=== PATIENT | female | born 1955 | race African-American/Black ===

== ENCOUNTER 2017-01-25 18:33 | Emergency (ER) | payer MEDICAID, OTHER ==
[2017-01-25 18:58] LABS: #Basophils 0.1 thou/uL (0.0-0.2); #Eosinphils 0.1 thou/uL (0.0-0.7); #Lymphocytes 2.8 thou/uL (1.20-3.40); #Monocytes 0.4 thou/uL (0.11-0.59); #Neutrophils 2.6 thou/uL (1.40-6.50); %Basophils 1.3 % (0.0-1.0); %Eosinophils 2.1 % (0.0-10.0); %Neutrophils 43.6 % (42.0-75.0); Hemoglobin 15.1 g/dL (12.0-16.0); Mean Corpuscular Hemoglobin 32.9 pg (27.0-31.0); Mean Corpuscular Volume 99.7 fl (81.0-99.0); Mean Platelet Volume 6.6 fL (7.4-10.4); Platelet Count 239 thou/uL (130-400); RBC Distribution Width 11.9 % (11.5-14.5); Red Blood Cell (RBC) Count 4.58 mill/uL (4.20-5.40); White Blood Cell (WBC) Count 5.9 thou/uL (4.8-10.8)
[2017-01-25 19:15] LABS: ALT (SGPT) 14 U/L (0-55); AST (SGOT) 18 U/L (5-34); Albumin 4.2 g/dL (3.4-4.8); Alkaline Phosphatase 115 U/L (40-150); Anion Gap 15 mmol/L (10-20); BUN (Urea Nitrogen) 7 mg/dL (9.8-20.1); Bilirubin, Total 0.6 mg/dL (0.2-1.2); Calc. Creatinine Clearance 0 mL/min (70-130); Calcium 9.8 mg/dL (7.8-10.44); Carbon Dioxide 27 mmol/L (23-31); Chloride 99 mmol/L (98-107); Estimated GFR-MDRD 89; Globulin 3.3 g/dL (2.4-3.5); Glucose 101 mg/dL (80-115); Lipase 13 U/L (8-78); Protein, Total 7.5 g/dL (5.8-8.1); Sodium 138 mmol/L (136-145)
[2017-01-25 19:16] LABS: CKMB 1.1 ng/mL (0-6.6); Troponin I Less than 0.010 ng/mL (< 0.028)
[2017-01-25] MEDS ORDERED: Famotidine In NaCl 20 mg/50 ml Premix Bag ONE (19:22)
[2017-01-25] MEDS ORDERED: Famotidine 20 MG TAB ONE (19:22)
--- NOTE | 2017-01-25 20:46 | RAD ---
PORTABLE CHEST: Date: 01/25/17 An AP portable film at 1848 hours is compared with the 11/17/16 study. FINDINGS: The heart is normal in size for age, habitus, and AP projection. There is no vascular congestion or edema. No effusions are seen. No lobar pulmonary infiltrates are present. The lungs are mildly hyper expanded. The trachea is midline. There is probably some faint calcification in the aortic arch. Osmin e minimal haziness in the right cardiophrenic angle is probably just a fat pad or scarring. IMPRESSION: Hyperexpanded lungs with no acute findings. POS: HOME
== END 2017-01-25 20:32 | disposition home or self-care (01) ==
LOC: BURERS 18:33
DX: J44.9 Chronic obstructive pulmonary disease, unspecified (principal); I11.0 Hypertensive heart disease with heart failure; I50.9 Heart failure, unspecified; I25.2 Old myocardial infarction; F17.210 Nicotine dependence, cigarettes, uncomplicated
CPT/HCPCS: 36415; 71010; 80053; 82553; 83690; 84484; 85025; 93005; 94640; 94760; 96365; 96375; J7620

== ENCOUNTER 2017-06-10 18:17 | Emergency (ER) | payer OTHER ==
[~2017-06-10 18:17] MED LIST: Iopamidol 300 61% 100 ML VIAL FS ONE
[2017-06-10] MEDS ORDERED: methylPREDNISolone Sod Succ/PF 125 MG/2 ML VIAL ONE (19:01)
[2017-06-10 19:33] LABS: #Basophils 0.1 thou/uL (0.0-0.2); #Eosinphils 0.2 thou/uL (0.0-0.7); #Lymphocytes 2.5 thou/uL (1.20-3.40); #Monocytes 0.4 thou/uL (0.11-0.59); #Neutrophils 3.3 thou/uL (1.40-6.50); %Basophils 0.9 % (0.0-1.0); %Eosinophils 3.7 % (0.0-10.0); %Lymphocytes 39.4 % (21.0-51.0); %Monocytes 5.4 % (0.0-10.0); %Neutrophils 50.7 % (42.0-75.0); Hemoglobin 13.7 g/dL (12.0-16.0); Mean Corpuscular HGB CONC 32.5 g/dL (32.0-36.0); Mean Corpuscular Hemoglobin 33.7 pg (27.0-31.0); Mean Platelet Volume 7.1 fL (7.4-10.4); Platelet Count 194 thou/uL (130-400); RBC Distribution Width 11.4 % (11.5-14.5); Red Blood Cell (RBC) Count 4.07 mill/uL (4.20-5.40); White Blood Cell (WBC) Count 6.5 thou/uL (4.8-10.8)
[2017-06-10 19:43] LABS: INR-International Normal Ratio 1.1; PTT 23.2 SEC (22.9-36.1); Prothrombin Time 13.8 SEC (12.0-14.7)
[2017-06-10 19:44] LABS: D-Dimer Test 0.65 *mcg/mL (0.27-0.43)
[2017-06-10 19:50] LABS: ALT (SGPT) 13 U/L (8-55); AST (SGOT) 13 U/L (5-34); Albumin 3.9 g/dL (3.4-4.8); Alkaline Phosphatase 128 U/L (40-150); Anion Gap 16 mmol/L (10-20); BUN (Urea Nitrogen) 5 mg/dL (9.8-20.1); Bilirubin, Total 0.5 mg/dL (0.2-1.2); Calc. Creatinine Clearance 0 mL/min (70-130); Calcium 9.7 mg/dL (7.8-10.44); Carbon Dioxide 26 mmol/L (23-31); Chloride 105 mmol/L (98-107); Estimated GFR-MDRD Greater than 90; Globulin 2.9 g/dL (2.4-3.5); Glucose 90 mg/dL (80-115); Potassium 3.5 mmol/L (3.5-5.1); Protein, Total 6.8 g/dL (6.0-8.3); Sodium 143 mmol/L (136-145)
[2017-06-10 19:55] LABS: Troponin I 0.017 ng/mL (< 0.028)
--- NOTE | 2017-06-10 21:15 | RAD ---
CHEST TWO VIEWS: 06/10/17 Comparison is made with a 01/25/17 study. COPD is noted as before. The heart is normal in size and the lungs are clear. There are no congest franklin changes, effusions, or infiltrates. The heart is unchanged in size. Arteriosclerotic change is s een in the aorta. IMPRESSION: No acute findings. POS: HOME
[2017-06-10] MEDS ORDERED: Doxycycline Hyclate 100 MG TAB ONE (22:12)
--- NOTE | 2017-06-10 22:16 | CT ---
CT ANGIO OF THE CHEST: 06/10/17 Comparison is made with the prior study dated 12/04/15. Axial slices were acquired after a bolus of IV contrast. Oblique coronal reformations through the pu lmonary arteries was done subsequently. There is good opacification of the pulmonary arteries. There were no filling defects to suggest embo li. There is no sign of aortic dissection or aneurysm. The ascending aorta is slightly prominent in size measuring 3.6 cm across. The pulmonary arteries are generous in size with the right pulmonary a rtery measuring about 2.2 cm wide. Arteriosclerotic calcification is seen in the aorta and the coron yamilet arteries. The heart is enlarged but there is no pericardial fluid. The lungs show emphysematous changes throughout. No lobar consolidations were seen. there is a small patchy ground glass opacity in the right lower lobe posteriorly near the diaphragm. Looking back at the 2016 CT angio, I can faintly see something here, though perhaps not quite as prominent. This co uld be an area of scarring, though other pathology, even neoplasia, is theoretically possible. The a desirae should at least be watched, if not referred to a admission specialist to decide if anything should be d one sooner or later. Otherwise, the lungs showed no acute change. The lowest slices in this study sh owed several cystic areas scattered throughout the liver. The largest is about 3.4 cm in size and is no different than the [address] CT. IMPRESSION: 1. No evidence of pulmonary embolism. 2. Coronary arteriosclerosis. 3. Small patchy ground glass density in the right lower lobe, probably present in 2016 but a li ttle more prominent today. While it is still more likely benign than not, it might be prudent to shana ch it and potentially refer her to a admission specialist for followup given her emphysema. DISCUSSED NEED FOR F/U WITH DR SHEPARD @ [id number] ON 06/10. POS: HOME
== END 2017-06-10 22:40 | disposition home or self-care (01) ==
LOC: BURERS 18:17
DX: J44.1 Chronic obstructive pulmonary disease with (acute) exacerbation (principal); I11.0 Hypertensive heart disease with heart failure; I50.9 Heart failure, unspecified; I25.9 Chronic ischemic heart disease, unspecified; F17.210 Nicotine dependence, cigarettes, uncomplicated; Z79.82 Long term (current) use of aspirin; Z79.899 Other long term (current) drug therapy
CPT/HCPCS: 71020; 71275; 80053; 82553; 83605; 83880; 84484; 85025; 85379; 85610; 85730; 87040; 94760; 96374; A4216; J2930; J7620

== ENCOUNTER 2018-07-16 16:16 | Emergency (ER) | payer OTHER ==
[2018-07-16] MEDS ORDERED: Famotidine In NaCl 20 mg/50 ml Premix Bag ONE (16:39)
[2018-07-16] MEDS ORDERED: Mag-Al Plus 1200 MG/1200 MG/120 MG/30 ML UDCUP ONE (16:39)
[2018-07-16] MEDS ORDERED: Lidocaine Viscous Sol 2% 15 ml UD Cup ONE (16:39)
[2018-07-16] MEDS ORDERED: Pantoprazole 40 MG VIAL ONE (16:39)
[2018-07-16 16:58] LABS: #Eosinphils 0.1 thou/uL (0.0-0.7); #Lymphocytes 1.6 thou/uL (1.20-3.40); #Monocytes 0.2 thou/uL (0.11-0.59); %Basophils 0.9 % (0.0-1.0); %Eosinophils 1.6 % (0.0-10.0); %Lymphocytes 32.8 % (21.0-51.0); %Monocytes 4.5 % (0.0-10.0); %Neutrophils 60.1 % (42.0-75.0); Hemoglobin 15.2 g/dL (12.0-16.0); Mean Corpuscular HGB CONC 34.6 g/dL (32.0-36.0); Mean Corpuscular Hemoglobin 33.7 pg (27.0-31.0); Mean Corpuscular Volume 97.3 fL (78.0-98.0); Mean Platelet Volume 7.6 fL (7.4-10.4); Platelet Count 184 thou/uL (130-400); RBC Distribution Width 11.5 % (11.5-14.5); Red Blood Cell (RBC) Count 4.51 mill/uL (4.20-5.40)
[2018-07-16 17:04] LABS: Clarity Clear (Clear); Specific Gravity, Urine 1.025 (1.005-1.030); pH, Urine 5.5 (5.0-9.0)
[2018-07-16 17:05] LABS: Bilirubin Small (Negative); Blood, Urine Trace (Negative); Glucose, Urine (Dipstick) Negative (Negative); Leukocyte Trace (Negative); Nitrite Negative (Negative); Protein, Urine (Dipstick) Trace mg/dL (Neg-Trace)
[2018-07-16 17:06] LABS: ALT (SGPT) 15 U/L (8-55); AST (SGOT) 16 U/L (5-34); Albumin 4.3 g/dL (3.4-4.8); Alkaline Phosphatase 147 U/L (40-150); Anion Gap 15 mmol/L (10-20); BUN (Urea Nitrogen) 7 mg/dL (9.8-20.1); Calc. Creatinine Clearance 0 mL/min (70-130); Calcium 10.3 mg/dL (7.8-10.44); Carbon Dioxide 26 mmol/L (23-31); Chloride 106 mmol/L (98-107); Estimated GFR-MDRD Greater than 90; Globulin 2.9 g/dL (2.4-3.5); Glucose 92 mg/dL (80-115); Lipase 38 U/L (8-78); Potassium 3.9 mmol/L (3.5-5.1); Protein, Total 7.2 g/dL (6.0-8.3); Sodium 143 mmol/L (136-145)
[2018-07-16 17:07] LABS: CKMB 1.4 ng/mL (0-6.6); Troponin I Less than 0.010 ng/mL (< 0.028)
[2018-07-16 17:07] LABS: Bacteria/HPF 4+ HPF (None Seen); RBC/HPF 0-3 HPF (0-3); Squamous Epithelial 0-3 HPF (0-3)
[2018-07-16 17:08] LABS: Other Microscopic Description MUCOUS THREADS
--- NOTE | 2018-07-16 17:41 | RAD ---
AP PORTABLE CHEST: 07/16/2018 1628 HOURS COMPARISON: Study from [facility] from 03/04/2018. FINDINGS: Heart size is normal and stable. Dense calcification is seen in the aortic arch. The lungs are full y inflated and clear. No focal infiltrate or effusion is seen. The mediastinum is unremarkable. IMPRESSION: Arteriosclerosis but no acute findings. POS: HOME
== END 2018-07-16 17:32 | disposition home or self-care (01) ==
LOC: BURERS 16:16
DX: K29.70 Gastritis, unspecified, without bleeding (principal); N39.0 Urinary tract infection, site not specified; I10 Essential (primary) hypertension; J44.9 Chronic obstructive pulmonary disease, unspecified; I25.2 Old myocardial infarction; F17.210 Nicotine dependence, cigarettes, uncomplicated; Z79.899 Other long term (current) drug therapy; Z79.82 Long term (current) use of aspirin
CPT/HCPCS: 71045; 80053; 81003; 81015; 82553; 83690; 84484; 85025; 93005; 96365; 96375; C9113

== ENCOUNTER 2019-02-09 23:03 | Emergency (ER) | payer MEDICARE, MEDICAID ==
[~2019-02-09 23:03] MED LIST changes: -Iopamidol 300 61% 100 ML VIAL FS ONE; +Iopamidol 370 76% 125 ML VIAL FS ONE
[2019-02-09] MEDS ORDERED: Ondansetron ODT 4 MG TAB ONE (23:31)
[2019-02-10 00:56] LABS: #Basophils 0.1 thou/uL (0.0-0.2); #Lymphocytes 1.3 thou/uL (1.20-3.40); #Monocytes 0.4 thou/uL (0.11-0.59); %Basophils 0.7 % (0.0-1.0); %Eosinophils 0.4 % (0.0-10.0); %Lymphocytes 17.2 % (21.0-51.0); %Monocytes 4.5 % (0.0-10.0); %Neutrophils 77.3 % (42.0-75.0); Mean Corpuscular HGB CONC 32.8 g/dL (32.0-36.0); Mean Corpuscular Hemoglobin 33.1 pg (27.0-31.0); Mean Platelet Volume 5.9 fL (7.4-10.4); Platelet Count 183 thou/uL (130-400); RBC Distribution Width 11.7 % (11.5-14.5); Red Blood Cell (RBC) Count 4.53 mill/uL (4.20-5.40); White Blood Cell (WBC) Count 7.8 thou/uL (4.8-10.8)
[2019-02-10 01:10] LABS: ALT (SGPT) 11 U/L (8-55); AST (SGOT) 12 U/L (5-34); Albumin 4.4 g/dL (3.4-4.8); Alkaline Phosphatase 151 U/L (40-150); Anion Gap 17 mmol/L (10-20); BUN (Urea Nitrogen) 8 mg/dL (9.8-20.1); Bilirubin, Total 0.7 mg/dL (0.2-1.2); Calc. Creatinine Clearance 0 mL/min (70-130); Calcium 10.5 mg/dL (7.8-10.44); Carbon Dioxide 26 mmol/L (23-31); Chloride 101 mmol/L (98-107); Estimated GFR-MDRD 81; Glucose 119 mg/dL (80-115); Lipase 9 U/L (8-78); Potassium 3.6 mmol/L (3.5-5.1); Protein, Total 7.4 g/dL (6.0-8.3); Sodium 140 mmol/L (136-145)
--- NOTE | 2019-02-10 10:20 | CT ---
PRELIMINARY REPORT/[facility]/EMERGENCY AFTER HOURS PROCEDURE: EXAM: CT Angiography Chest With Contrast EXAM DATE/TIME: 02/10/2019 1:44 AM CLINICAL HISTORY: 64 years old, female; Abnormal findings; Abnormal diagnostic tests; Elevated d-dimer; Patient HX: N/v TECHNIQUE: Imaging protocol: Axial computed tomographic angiography images of the chest with intravenous contras t using CT angiography protocol. 3D rendering: MIP reconstructed images were created and reviewed. Radiation optimization: All CT scans at this facility use at least one of these dose optimization jacob hniques: automated exposure control; mA and/or kV adjustment per patient size (includes targeted exam s where dose is matched to clinical indication); or iterative reconstruction. Contrast material: ISOVUE 370; Contrast volume: 84 ml; Contrast route: LT AC; COMPARISON: No relevant prior studies available. FINDINGS: Pulmonary arteries: There is no evidence of peripheral filling defects within the pulmonary arterial circulation to suggest pulmonary embolism. Aorta: The aorta demonstrates moderate atherosclerotic calcification. Thyroid: The visualized thyroid gland is unremarkable. Lungs: Mild centrilobular emphysematous changes are present. Pleural space: Normal. No pneumothorax. No pleural effusion. Heart: Normal. No cardiomegaly. No pericardial effusion. Mediastinum: The trachea is normal. Liver: There are multiple simple hepatic cysts. Kidneys and ureters: There is a simple cyst in the left kidney. Lymph nodes: Unremarkable. No enlarged lymph nodes. Bones/joints: Unremarkable. No acute fracture. Soft tissues: Unremarkable. IMPRESSION: There is no CT evidence of acute pulmonary embolism. Thank you for allowing us to participate in the care of your patient. Dictated and Authenticated by: Duy Osorio MD 02/10/2019 2:41 AM Central Time ([place] & [place]) FINAL REPORT CT ANGIO CHEST: Date: 02/10/[address] of the chest was performed for evaluation of an abnormal D-Dimer in this patient with nause a and vomiting. After acquiring images following injection of IV contrast, MIP projections in various planes were obtained. FINDINGS: There is excellent opacification of the pulmonary arteries. There is no sign of pulmonary embolism. T he aorta is ectatic and calcified, but no sign of aneurysm or dissection. Both coronary arteries fill . There is a suspicious of some narrowing near the origin of the right coronary artery, and perhaps s ome slight narrowing of the LAD. Other studies would be needed to confirm this. No sign of mediastina l adenopathy. Heart globally enlarged. Lungs clear with emphysematous changes. No focal infiltrate or nodule seen. No effusions. Upper abdomen shows multiple hepatic cysts, as well as a small cyst top of left kidney. These seem si milar in appearance to prior CT of 06/10/17. IMPRESSION: 1. No evidence of pulmonary embolism. 2. Arteriosclerotic disease. Possible narrowing near origin of right coronary and LAD. Further follo w-up might be contemplated. 3. Emphysematous changes in the lungs. 4. Hepatic and renal cysts, similar to prior study. Report in agreement with preliminary reading by [place]. CODE T. POS: HOME
== END 2019-02-10 03:00 | disposition home or self-care (01) ==
LOC: BURERS 23:03
DX: R11.0 Nausea (principal); R42 Dizziness and giddiness; I11.0 Hypertensive heart disease with heart failure; I50.9 Heart failure, unspecified; J44.9 Chronic obstructive pulmonary disease, unspecified; I25.2 Old myocardial infarction; E78.5 Hyperlipidemia, unspecified; F17.210 Nicotine dependence, cigarettes, uncomplicated; Z79.899 Other long term (current) drug therapy; Z79.51 Long term (current) use of inhaled steroids
CPT/HCPCS: 36415; 71275; 80053; 83690; 83880; 84484; 85025; 85379; 93005; 96360; Q0162; Q9967

== ENCOUNTER 2021-04-24 11:14 | Emergency (ER) | payer MEDICARE, OTHER ==
[2021-04-25 14:28] LABS: SARS-CoV-2 PCR by NAA DETECTED (NotDetected)
== END 2021-04-24 12:08 | disposition home or self-care (01) ==
LOC: BURERS 11:14
DX: U07.1 COVID-19 (principal); J44.9 Chronic obstructive pulmonary disease, unspecified; E78.5 Hyperlipidemia, unspecified; I25.2 Old myocardial infarction; F17.210 Nicotine dependence, cigarettes, uncomplicated; I11.0 Hypertensive heart disease with heart failure; I50.9 Heart failure, unspecified; Z79.899 Other long term (current) drug therapy
CPT/HCPCS: 99283; U0003; U0005

== ENCOUNTER 2025-06-15 04:22 | Emergency (ER) | payer OTHER ==
[2025-06-15] MEDS ORDERED: Ondansetron PF 4 MG/2 ML Vial ONE (04:44)
[2025-06-15 05:14] LABS: #Basophils 0.0 thou/uL (0.0-0.2); #Eosinophils 0.0 thou/uL (0.0-0.7); #Lymphocytes 1.0 thou/uL (1.20-3.40); #Monocytes 0.3 thou/uL (0.11-0.59); #Neutrophils 2.3 thou/uL (1.40-6.50); %Basophils 1.3 % (0.0-1.0); %Eosinophils 0.7 % (0.0-10.0); %Lymphocytes 26.9 % (21.0-51.0); %Monocytes 8.7 % (0.0-10.0); %Neutrophils 62.3 % (42.0-75.0); Hematocrit 36.2 % (36.0-47.0); Hemoglobin 12.9 g/dL (12.0-16.0); Mean Corpuscular Hemoglobin 33.7 pg (27.0-31.0); Mean Corpuscular Volume 95.1 fl (78.0-98.0); Platelet Count 145 10x3/uL (130-400); Red Blood Cell (RBC) Count 3.81 mill/uL (4.20-5.40); White Blood Cell (WBC) Count 3.6 10x3/uL (4.8-10.8)
[2025-06-15 05:25] LABS: INR-International Normal Ratio 1.3; Prothrombin Time 15.8 sec (12.0-14.7)
[2025-06-15 05:26] LABS: PTT 26.5 sec (22.9-36.1)
[2025-06-15 05:30] LABS: ALT (SGPT) 19 U/L (Less than 34); AST (SGOT) 29 U/L (11-34); Albumin 3.7 g/dL (3.1-4.5); Alkaline Phosphatase 99 U/L (40-110); Anion Gap 16 mmol/L (10-20); BUN (Urea Nitrogen) 14 mg/dL (9.8-20.1); Bilirubin, Total 0.8 mg/dL (0.3-1.2); Calc. Creatinine Clearance 0 mL/min (70-130); Calcium 9.1 mg/dL (7.8-10.44); Carbon Dioxide 21 mmol/L (23-31); Chloride 103 mmol/L (98-107); Globulin 2.6 g/dL (2.4-3.5); Glucose 102 mg/dL (83-110); Lipase 15 U/L (8-78); Magnesium 1.6 mg/dL (1.6-2.6); Potassium 3.6 mmol/L (3.5-5.1); Sodium 136 mmol/L (136-145)
[2025-06-15 05:39] LABS: Glucose, Urine (Dipstick) Negative (Negative); Leukocyte Negative (Negative); Protein, Urine (Dipstick) 30 mg/dL (Neg-Trace); Specific Gravity, Urine Greater/Equal 1.030 (1.005-1.030)
[2025-06-15] MEDS ORDERED: Droperidol 5 MG/2 ML VIAL ONE (05:43)
[2025-06-15 05:46] LABS: Bacteria/HPF 1+ HPF (None Seen); CAUTI Indications for Culture Dysuria,urgency,freq; Oval Fat Bodies/HPF Rare HPF (None Seen)
[2025-06-15 05:49] LABS: RBC/HPF None Seen HPF (0-3)
[2025-06-15 05:50] LABS: Urine Culture Reflex Yes Yes
== END 2025-06-15 07:35 | disposition home or self-care (01) ==
LOC: BURERS 04:22
DX: R11.2 Nausea with vomiting, unspecified (principal); R19.7 Diarrhea, unspecified; R91.1 Solitary pulmonary nodule; I11.0 Hypertensive heart disease with heart failure; I50.9 Heart failure, unspecified; J44.9 Chronic obstructive pulmonary disease, unspecified; I25.2 Old myocardial infarction; F17.210 Nicotine dependence, cigarettes, uncomplicated; Z79.899 Other long term (current) drug therapy
CPT/HCPCS: 74177; 80053; 81001; 83690; 83735; 85025; 85610; 85730; 87086; 93005; J1790; J2405; 36415; 96374; 96375

== ENCOUNTER 2025-07-02 14:25 | Emergency (ER) | payer OTHER ==
[2025-07-02] MEDS ORDERED: Dexamethasone 10 MG/ML VIAL ONE (14:37)
== END 2025-07-02 15:39 | disposition home or self-care (01) ==
LOC: BURERS 14:25
DX: J44.1 Chronic obstructive pulmonary disease with (acute) exacerbation (principal); I11.0 Hypertensive heart disease with heart failure; I50.9 Heart failure, unspecified; I25.10 Atherosclerotic heart disease of native coronary artery without angina pectoris; I25.2 Old myocardial infarction; F17.210 Nicotine dependence, cigarettes, uncomplicated
CPT/HCPCS: 71045; 99284; 99406; J1100